=== PATIENT | female | born 1955 | race Caucasian/White ===

== ENCOUNTER → 2016-07-22 | Outpatient (CLI) | payer BC ==
--- NOTE | 2016-07-22 17:15 | MA ---
Screening Digital Mammogram With iCAD Analysis Clinical Indications: Routine screening. A half sister was diagnosed with breast cancer in her 70s. Technique: Standard cephalocaudal projections are obtained. Digital breast tomosynthesis was performe d in the MLO projection with reconstruction at 1.0 mm slice thickness and composite MLO views reconst ructed. This examination is processed by the iCAD computer aided detection system. Comparison: May 2015, May 2014, May 2013, April 2012, January 2011, January 2010, Jan us2008. Breast density: Type C: Heterogeneously dense. Findings: CAD was reviewed. No masses, suspicious calcifications or secondary signs of malignancy are seen. There has been no significant change in the appearance of either breast. Impression: Negative mammogram. BI-RADS 1. Recommendation: Routine mammographic screening in one year as long as physical examination is negativ e in this patient with heterogeneously dense breast parenchyma. [facility] will send a result letter to the patient. Negative mammography should not preclude additional workup of a clinically suspicious finding. The patient's information is entered into a reminder system with a target due date for her next mammo gram.
== END ==
LOC: FIMAGING 15:39
DX: Z12.31 Encounter for screening mammogram for malignant neoplasm of breast (principal); Z80.3 Family history of malignant neoplasm of breast
CPT/HCPCS: G0202

== ENCOUNTER → 2016-08-08 | Outpatient (CLI) | payer BC | LOC: BMCIMAGING 08:10 | PROVIDERS: ATTEND Orthopaedic Surgery | DX: M17.0 Bilateral primary osteoarthritis of knee (principal) ==

== ENCOUNTER → 2016-09-12 | Outpatient (CLI) | payer BC | LOC: FIMAGING 09:25 | PROVIDERS: ATTEND Orthopaedic Surgery | DX: M16.11 Unilateral primary osteoarthritis, right hip (principal); M16.12 Unilateral primary osteoarthritis, left hip ==

== ENCOUNTER 2016-10-14 08:20 | Inpatient (IN) | payer BC ==
[2016-10-10 10:49] LABS: BCH VENIPUNCTURE CHGD
[2016-10-10 12:53] LABS: % IMMATURE GRANULYOCYTES 0.1 % (0.0-1.1); ABSOLUTE IMMATURE GRANULOCYTES 0.01 10^3/uL (0.00-0.10); ADD DIFF? NO; ADD MORPH? NO; ADD SCAN? NO; ATYPICAL LYMPHOCYTE FLAG 30 (0-99); FRAGMENT RBC FLAG 0 (0-99); HEMATOCRIT 40.4 % (38.0-47.0); HEMOGLOBIN 13.3 g/dL (12.6-16.3); LEFT SHIFT FLG 0 (0-99); LIPEMIA HEMOLYSIS FLAG 80 (0-99); MEAN CELL HEMOGLOBIN 31.4 pg (27.9-34.1); MEAN CELL HEMOGLOBIN CONCENTR. 32.9 g/dL (32.4-36.7); MEAN CELL VOLUME 95.3 fL (81.5-99.8); MEAN PLATELET VOLUME 9.3 fL (8.7-11.7); PLATELET CLUMPS FLAG 0 (0-99); PLATELET COUNT 195 10^3/uL (150-400); RED BLOOD CELL COUNT 4.24 10^6/uL (4.18-5.33); RED CELL DISTRIBUTION WIDTH 13.2 % (11.5-15.2)
--- NOTE | 2016-10-14 07:04 | PDIAF ---
- Diagnosis Diagnosis: right hip djd Code Status: Full Code - Medication Management Discharge Medications: Medications to Continue on Transfer Calcium Carbonate [Oyster Shell Calcium 500 mg (*)] 500 mg PO DAILY 09/11/16 [ Last Taken Unknown] Cholecalciferol Vit D3 [Vitamin D3 (*)] 1,000 units PO DAILY 09/11/16 [Last Taken Unknown] Diclofenac Sodium [Voltaren 50 MG (*)] 100 mg PO DAILY PRN 09/11/16 [Last Taken Unknown] Multivitamins [Multivitamin (*)] 1 each PO DAILY 09/11/16 [Last Taken Unknown] Naproxen Sodium [Aleve 220 MG (*)] 220 mg PO DAILY PRN 09/11/16 [Last Taken Unknown] Discharge Medications: Refer to the Discharge Home Medication list for PRN reason. - Orders Services needed: Physical Therapy Diet Recommendation: no restrictions on diet Diet Texture: Regular Texture Diet Activity/Weight Bearing Restrictions: wbat. anterior hip precautions. daily dressing changes. may shower without bandage, no soaking or immersion. seek attention for increasing pain, drainage, fevers, sob or other focal complaints. f/u at two weeks - Follow Up Care Current Providers and Referrals: Cathy Nugent MD [Primary Care Provider] -
[~2016-10-14 08:20] MED LIST: BISACODYL 10 MG SUPP PR PRN; CYCLOBENZAPRINE 10 MG TAB PO PRN; DIAZEPAM 5 MG TAB PO PRN; DIPHENOXYLATE/ATROPINE LOMOTIL 1 TAB PO PRN; LACTULOSE 20 GM/30 ML UDCUP PO PRN; MAGNESIUM HYDROXIDE 30 ML UDCUP PO PRN; METOCLOPRAMIDE 10 MG/2 ML VIAL IVP PRN; ONDANSETRON 4 MG/2 ML VIAL IVP PRN; PHARMACY PAIN CONSULT 1 EA MISC PRN; POLYETHYLENE GLYCOL 3350 17 GM PKT PO PRN; PROMETHAZINE HCL 25 MG SUPPR PR PRN; PROPOFOL 200 MG/20 ML VIAL ONE; TEMAZEPAM 15 MG CAP PO PRN; TRANEXAMIC ACID 1,250 MG in NS 100 ML IV ONE; ceFAZolin 1 GM/5 ML SYR ONE; diphenhydrAMINE 25 MG CAP PO PRN; fentaNYL 100 MCG/2 ML INJ ONE; oxyCODONE IR 5 MG TAB PO PRN; traMADol 50 MG TAB PO PRN
[2016-10-14] MEDS ORDERED: ROPI/epiNEPH/KETOROLAC/morphINE JOINT COCKTAIL IU ONE (08:30)
[2016-10-14] MEDS ORDERED: ACETAMINOPHEN 325 MG TAB PO ONE (08:30)
[2016-10-14] MEDS ORDERED: CHLORHEXIDINE GLUC HIBICLENS 118 ML BTL TP ONE (08:30)
[2016-10-14] MEDS ORDERED: CEFAZOLIN 2 GM/DEXTR 100 ML IV ONE (08:30)
[2016-10-14] MEDS ORDERED: FAMOTIDINE 20 MG TAB PO ONE (08:30)
[2016-10-14] MEDS ORDERED: LIDOCAINE 1% 2 ML INJ ONE (08:38)
[2016-10-14] MEDS ORDERED: MIDAZOLAM 2 MG/2 ML VIAL ONE (09:27)
[2016-10-14] MEDS ORDERED: fentaNYL 100 MCG/2 ML INJ ONE ×2 (09:29→11:39)
[2016-10-14] MEDS ORDERED: ROCURONIUM 50 MG/5 ML VIAL ONE (09:29)
[2016-10-14] MEDS ORDERED: DEXAMETHASONE 4 MG/ML VIAL ONE (09:33)
[2016-10-14] MEDS ORDERED: PHENYLEPHRINE HCL 100 MCG/ML SYR ONE (09:43)
[2016-10-14] MEDS ORDERED: morphINE *ANESTHESIA ONLY* 10 MG/ML VIAL ONE (10:07)
[2016-10-14] MEDS ORDERED: ONDANSETRON 4 MG/2 ML VIAL ONE (10:28)
[2016-10-14] MEDS ORDERED: GLYCOPYRROLATE 0.2 MG/1 ML VIAL ONE (10:29)
[2016-10-14] MEDS ORDERED: NEOSTIGMINE METHYLSULFATE 5 MG/5 ML SYR ONE (10:29)
[2016-10-14] MEDS: CALCIUM CARBONATE 500 MG TAB PO SCH (12:58)
[2016-10-14] MEDS: CHOLECALCIFEROL VIT D3 1,000 UNITS TAB PO SCH (12:58)
[2016-10-14] MEDS: SENNOSIDES/DOCUSATE SODIUM TAB PO SCH ×2 (12:59→21:34)
[2016-10-14] MEDS: MULTIVITAMINS 1 EACH TAB PO SCH (12:59)
[2016-10-14] MEDS: LR 1,000 ML IV SCH (13:43)
[2016-10-14] MEDS: ceFAZolin 2 GM/DEXTROSE 100 ML IV SCH ×2 (13:43→21:32)
[2016-10-14] MEDS: ACETAMINOPHEN 325 MG TAB PO SCH ×2 (17:29→18:15)
[2016-10-14] MEDS: ONDANSETRON DISINTEGRATING 4 MG TAB PO PRN (21:25)
[2016-10-14] MEDS: ASPIRIN 325 MG TAB PO SCH (21:32)
[2016-10-14] MEDS: FAMOTIDINE 20 MG TAB PO SCH (21:32)
[2016-10-14] MEDS ORDERED: PROMETHAZINE HCL 25 MG TAB PO PRN (22:33)
[2016-10-15] MEDS: ACETAMINOPHEN 325 MG TAB PO SCH ×3 (04:33→13:05)
[2016-10-15 04:46] LABS: HEMATOCRIT 30.4 % (38.0-47.0)
--- NOTE | 2016-10-15 07:22 | PDIAF ---
- Diagnosis Diagnosis: right hip djd Code Status: Full Code - Medication Management Discharge Medications: Medications to Continue on Transfer Calcium Carbonate [Oyster Shell Calcium 500 mg (*)] 500 mg PO DAILY 09/11/16 [ Last Taken 09/30/16] Cholecalciferol Vit D3 [Vitamin D3 (*)] 1,000 units PO DAILY 09/11/16 [Last Taken 09/30/16] Diclofenac Sodium [Voltaren 50 MG (*)] 100 mg PO DAILY PRN 09/11/16 [Last Taken 09/30/16] Multivitamins [Multivitamin (*)] 1 each PO DAILY 09/11/16 [Last Taken 09/30/16] Naproxen Sodium [Aleve 220 MG (*)] 220 mg PO DAILY PRN 09/11/16 [Last Taken 04/08] Aspirin [Aspirin 325 mg (*)] 325 mg PO DAILY #0 tab 10/15/16 [Last Taken Unknown ] Diazepam [Valium 5 MG (*)] 5 mg PO Q6HRS PRN #30 tab 10/15/16 [Last Taken Unknown] oxyCODONE IR [Oxycodone Ir (*)] 5 - 10 mg PO Q3HRS PRN #70 tab 10/15/16 [Last Taken Unknown] Discharge Medications: Refer to the Discharge Home Medication list for PRN reason. - Orders Services needed: Physical Therapy Diet Recommendation: no restrictions on diet Diet Texture: Regular Texture Diet Activity/Weight Bearing Restrictions: wbat. anterior hip precautions. daily dressing changes. may shower without bandage, no soaking or immersion. seek attention for increasing pain, drainage, fevers, sob or other focal complaints. f/u at two weeks - Follow Up Care Current Providers and Referrals: Cathy Nugent MD [Primary Care Provider] -
[2016-10-15 07:31] VITALS: PULSE 64; RESP 14; TEMP 98.6; O2SAT 98
[2016-10-15] MEDS: LR 1,000 ML IV SCH (08:17)
[2016-10-15] MEDS: MULTIVITAMINS 1 EACH TAB PO SCH (08:21)
[2016-10-15] MEDS: SENNOSIDES/DOCUSATE SODIUM TAB PO SCH (08:21)
[2016-10-15] MEDS: FAMOTIDINE 20 MG TAB PO SCH (08:21)
[2016-10-15] MEDS: CHOLECALCIFEROL VIT D3 1,000 UNITS TAB PO SCH (08:21)
[2016-10-15] MEDS: CALCIUM CARBONATE 500 MG TAB PO SCH (08:21)
[2016-10-15] MEDS: ASPIRIN 325 MG TAB PO SCH (08:21)
--- NOTE | 2016-10-15 08:35 | GDS ---
[f rep st] DISCHARGE SUMMARY ADMIT DIAGNOSIS: Right hip degenerative joint disease. DISCHARGE DIAGNOSIS: Right hip degenerative joint disease. PROCEDURE: Right total hip arthroplasty. HISTORY OF PRESENT ILLNESS: The patient is a 61-year-old woman who has end-stage arthritis to her r ight hip. Clinical and radiographic features are consistent with this. She has failed attempts at conservative management. I have recommended total hip replacement. She understood the risks, benef its, and alternatives, and wished to proceed. Written consent was signed and placed in the patient' s chart. HOSPITAL COURSE: The patient was admitted to the hospital floor after undergoing uncomplicated tota l hip arthroplasty. She tolerated the procedure well. Postoperatively, she had nausea for the firs t 24 hours. At the time of discharge, she is tolerating an oral diet. Her pain is well controlled on oral medicines. She is voiding without difficulty. Her incisions are clean, dry, and intact. S he has no calf swelling or tenderness. Negative Homans. X-rays are stable with concentric reductio n. No fracture or lucency. DISCHARGE ACTIVITY: She is to follow anterior hip precautions, daily dressing changes, no soaking o r immersion. Follow up in 2 weeks. Seek attention for increasing redness, swelling, drainage, disc harge. DISCHARGE MEDICATIONS: Oxycodone, Valium, and aspirin 325 mg p.o. daily for 6 weeks. Copy requested to: Primary Care Physician /[id number]/LUZ ELENAL
[2016-10-15] MEDS: ONDANSETRON DISINTEGRATING 4 MG TAB PO PRN (09:09)
[2016-10-15 12:04] VITALS: BP 110/54
== END 2016-10-15 13:10 | disposition home or self-care (01) | DRG 470 ==
LOC: F3N 08:20
PROVIDERS: ADMIT Orthopaedic Surgery; ATTEND Orthopaedic Surgery
PROC: 0SR904Z Replacement of Right Hip Joint with Ceramic on Polyethylene Synthetic Substitute, Open Approach (ICD-10-PCS; principal; 2016-10-14 09:30)
DX: M16.11 Unilateral primary osteoarthritis, right hip (principal); Z86.14 Personal history of Methicillin resistant Staphylococcus aureus infection
CPT/HCPCS: 97116-GP; 97161-GP; 97165-GO; J0171; J0690; J1100; J1885; J2250; J2370; J2405; J2704; J2710; J2765; J2795; J3010

== ENCOUNTER 2016-12-09 11:06 | Inpatient (IN) | payer BC ==
--- NOTE | 2016-12-09 07:10 | PDHPUP ---
History & Physical Update H&P update statement: This history and physical update is based on an assessment of the patient which was completed after admission or registration (within 24 hours), but prior to the surgery/procedure. H&P update: H&P reviewed & patient examined, no change in patient's condition since H&P completed
[~2016-12-09 11:06] MED LIST changes: +ACETAMINOPHEN 325 MG TAB PO ONE; +CEFAZOLIN 2 GM/DEXTR 100 ML IV ONE; +CHLORHEXIDINE GLUC HIBICLENS 118 ML BTL TP ONE; -CYCLOBENZAPRINE 10 MG TAB PO PRN; +FAMOTIDINE 20 MG TAB PO ONE; +ONDANSETRON DISINTEGRATING 4 MG TAB PO PRN; +PROMETHAZINE HCL 25 MG/ML INJ IVP PRN; -PROPOFOL 200 MG/20 ML VIAL ONE; +ROPI/epiNEPH/KETOROLAC/morphINE JOINT COCKTAIL IU ONE; -TRANEXAMIC ACID 1,250 MG in NS 100 ML IV ONE; -ceFAZolin 1 GM/5 ML SYR ONE; -fentaNYL 100 MCG/2 ML INJ ONE; -traMADol 50 MG TAB PO PRN
[2016-12-09] MEDS ORDERED: LR 1,000 ML IV ONE (11:34)
[2016-12-09] MEDS ORDERED: LIDOCAINE 1% 2 ML INJ ID PRN (11:34)
[2016-12-09] MEDS ORDERED: ACETAMINOPHEN 500 MG TAB ONE (11:39)
[2016-12-09] MEDS ORDERED: FAMOTIDINE 20 MG TAB ONE (11:40)
[2016-12-09] MEDS ORDERED: LIDOCAINE 1% 5 ML SDV ONE (11:40)
[2016-12-09] MEDS ORDERED: CEFAZOLIN 2 GM/DEXTROSE/100 ML BAG IV ONE (11:40)
[2016-12-09] MEDS ORDERED: THROMBIN (BOVINE) 5,000 UNIT VIAL TP ONE (13:54)
[2016-12-09] MEDS ORDERED: CALCIUM CHLORIDE 1 GM/10 ML INJ ONE (13:54)
[2016-12-09] MEDS ORDERED: POLYMYXIN B SULFATE 500,000 UNIT/10 ML SYR IRR ONE (13:55)
[2016-12-09] MEDS ORDERED: BACITRACIN 50,000 UNITS/10 ML SYR IRR ONE (13:55)
[2016-12-09] MEDS ORDERED: MIDAZOLAM 2 MG/2 ML VIAL IVP ONE (14:05)
--- NOTE | 2016-12-09 14:05 | PDANEPAE ---
ANE Past Medical History - Cardiovascular History Hx Hypertension: No Hx Arrhythmias: No Hx Chest Pain: No Hx Coronary Artery / Peripheral Vascular Disease: No Hx CHF / Valvular Disease: No Hx Palpitations: No - Pulmonary History Hx COPD: No Hx Asthma/Reactive Airway Disease: No Hx Recent Upper Respiratory Infection: No Hx Oxygen in Use at Home: No - Neurologic History Hx Cerebrovascular Accident: No Hx Seizures: No Hx Dementia: No - Endocrine History Hx Diabetes: No - Renal History Hx Renal Disorders: Yes - Liver History Hx Hepatic Disorders: No - Neurological & Psychiatric Hx Hx Neurological and Psychiatric Disorders: No - Cancer History Hx Cancer: No - Congenital Disorder History Hx Congenital Disorders: No - GI History Hx Gastrointestinal Disorders: No - Chronic Pain History Chronic Pain: Yes (RT HIP) ANE Review of Systems - Exercise capacity METS (RN): 4 METS ANE Patient History - Allergies Allergies/Adverse Reactions: No Known Allergies Allergy (Verified 12/09/16 11:57) - Home Medications Home Medications: Calcium Carbonate [Oyster Shell Calcium 500 mg (*)] 500 mg PO DAILY 09/11/16 [ Last Taken 12/02/16] Cholecalciferol Vit D3 [Vitamin D3 (*)] 1,000 units PO DAILY 09/11/16 [Last Taken 12/02/16] Diclofenac Sodium [Voltaren 50 MG (*)] 100 mg PO DAILY PRN 09/11/16 [Last Taken 12/02/16] Multivitamins [Multivitamin (*)] 1 each PO DAILY 09/11/16 [Last Taken 12/02/16] Naproxen Sodium [Aleve 220 MG (*)] 220 mg PO HS PRN 09/11/16 [Last Taken ] - NPO status NPO Since - Liquids (Date): 12/09/16 NPO Since - Liquids (Time): 07:00 NPO Since - Solids (Date): 12/08/16 - Smoking Hx Smoking Status: Never smoked ANE Labs/Vital Signs - Vital Signs Blood Pressure: 124/87 Heart Rate: 70 Respiratory Rate: 14 O2 Sat (%): 95 Height: 172.72 cm Weight: 3628.739 g
[2016-12-09] MEDS ORDERED: LIDOCAINE 2% 5 ML SDV ONE (14:17)
[2016-12-09] MEDS ORDERED: PROPOFOL/EMULSION 500 MG/50 ML BOTTLE IV ONE ×2 (14:17→16:30)
[2016-12-09] MEDS ORDERED: NS IV ONE (15:15)
[2016-12-09] MEDS ORDERED: TRANEXAMIC ACID IV ONE (15:15)
[2016-12-09] MEDS ORDERED: ONDANSETRON 4 MG/2 ML VIAL ONE (16:30)
[2016-12-09] MEDS ORDERED: PHENYLEPHRINE HCL 100 MCG/ML SYR ONE (16:47)
--- NOTE | 2016-12-09 18:26 | POSTANESTH ---
Post Anesthetic Evaluation Cardiovascular Status: Normal, Stable Respiratory Status: Normal, Stable Level of Consciousness/Mental Status: Can Participate in Eval Pain Control: Adequate, Prn Tx Ordered Nausea/Vomiting Control: Adequate, Prn Tx Ordered Complications Possibly Related to Anesthesia: None Noted
[2016-12-09] MEDS ORDERED: fentaNYL 100 MCG/2 ML INJ ONE (18:40)
[2016-12-09] MEDS ORDERED: HYDROmorphONE/DILAUDID 1 MG/ML SYR ONE (18:40)
[2016-12-09] MEDS ORDERED: fentaNYL 100 MCG/2 ML INJ IVP PRN (18:45)
[2016-12-09] MEDS: HYDROmorphONE/DILAUDID 1 MG/ML SYR IVP PRN ×2 (18:49→18:59)
[2016-12-09] MEDS: ACETAMINOPHEN 325 MG TAB PO SCH ×3 (19:42→23:01)
[2016-12-09] MEDS: SENNOSIDES/DOCUSATE SODIUM TAB PO SCH ×2 (19:44→20:33)
[2016-12-09] MEDS: FAMOTIDINE 20 MG TAB PO SCH (20:33)
[2016-12-09] MEDS: ASPIRIN 325 MG TAB PO SCH (20:34)
[2016-12-09] MEDS: LR 1,000 ML IV SCH (23:22)
[2016-12-10] MEDS: ACETAMINOPHEN 325 MG TAB PO SCH ×2 (05:01→12:27)
[2016-12-10 05:08] LABS: HEMATOCRIT 30.9 % (38.0-47.0); HEMOGLOBIN 10.1 g/dL (12.6-16.3)
--- NOTE | 2016-12-10 07:05 | PDIAF ---
- Diagnosis Diagnosis: right hip djd Code Status: Full Code - Medication Management Discharge Medications: Medications to Continue on Transfer Calcium Carbonate [Oyster Shell Calcium 500 mg (*)] 500 mg PO DAILY 09/11/16 [ Last Taken 12/02/16] Cholecalciferol Vit D3 [Vitamin D3 (*)] 1,000 units PO DAILY 09/11/16 [Last Taken 12/02/16] Diclofenac Sodium [Voltaren 50 MG (*)] 100 mg PO DAILY PRN 09/11/16 [Last Taken 12/02/16] Multivitamins [Multivitamin (*)] 1 each PO DAILY 09/11/16 [Last Taken 12/02/16] Naproxen Sodium [Aleve 220 MG (*)] 220 mg PO HS PRN 09/11/16 [Last Taken ] Aspirin [Aspirin 325 mg (*)] 325 mg PO DAILY #0 tab 12/10/16 [Last Taken Unknown ] Diazepam [Valium 5 MG (*)] 5 mg PO Q6HRS PRN #30 tab 12/10/16 [Last Taken Unknown] oxyCODONE IR [Oxycodone Ir (*)] 5 - 10 mg PO Q3HRS PRN #80 tab 12/10/16 [Last Taken Unknown] Discharge Medications: Refer to the Discharge Home Medication list for PRN reason. - Orders Services needed: Physical Therapy Diet Recommendation: no restrictions on diet Diet Texture: Regular Texture Diet Activity/Weight Bearing Restrictions: wbat. anterior hip precautions. daily dressing changes. no soaking or immersion. may shower without bandage. aspirin 325 mg po daily. f/u at two weeks - Follow Up Care Current Providers and Referrals: Cathy Nugent MD [Primary Care Provider] -
[2016-12-10] MEDS: ASPIRIN 325 MG TAB PO SCH (08:44)
[2016-12-10] MEDS: SENNOSIDES/DOCUSATE SODIUM TAB PO SCH (08:44)
[2016-12-10] MEDS: FAMOTIDINE 20 MG TAB PO SCH (08:58)
[2016-12-10] MEDS: LR 1,000 ML IV SCH (08:59)
--- NOTE | 2016-12-10 12:06 | GDS ---
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 POSTOPERATIVE DIAGNOSIS: Right failed total hip arthroplasty. PROCEDURE: Revision femoral component, right total hip arthroplasty. OPERATIVE INDICATIONS: The patient is a 61-year-old woman who is 6 weeks out from a right anterior total hip replacement. She has developed subsidence of her stem of approximately 1 cm. This has le ad to functional compromise and leg length inequality. I have recommended revision of her femoral c omponent. She understood the risks, benefits, alternatives and wished to proceed. Written consent was signed and placed in the patient's chart. HOSPITAL COURSE: The patient was admitted to the hospital floor after uncomplicated revision of her total hip arthroplasty. Intraoperatively, she did sustain a fracture of the greater trochanter. T his was cerclaged during fixation of the new femoral component. I have placed her on 25% weightbear ing precautions. At the time of discharge, she is tolerating an oral diet. Her pain is well contro lled on oral medicines. She is voiding without difficulty. Dressings are clean, dry, and intact. She has no calf swelling or tenderness. X-rays are stable, anatomically aligned. DISCHARGE ACTIVITY: She is 25% weight bearing. Anterior hip precautions. May shower without the b andage. No soaking or immersion. Fall precautions. Follow up in 2 weeks. Seek attention for incr easing redness, swelling, drainage, discharge, shortness of breath, calf pain. DISCHARGE MEDICATIONS: Valium and oxycodone. FOLLOWUP: In 2 weeks. /[id number]/MODL
[2016-12-10 15:52] VITALS: BP 98/55; PULSE 76; RESP 16; TEMP 97.9; O2SAT 96
[2016-12-10] MEDS ORDERED: ceFAZolin 2 GM/DEXTROSE 100 ML IV SCH (22:00)
== END 2016-12-10 17:39 | disposition home health service (06) | DRG 468 ==
LOC: F3N 11:06
PROVIDERS: ADMIT Orthopaedic Surgery; ATTEND Orthopaedic Surgery
PROC: 0SPR0JZ Removal of Synthetic Substitute from Right Hip Joint, Femoral Surface, Open Approach (ICD-10-PCS; principal; 2016-12-09 12:45)
PROC: 0SRR03Z Replacement of Right Hip Joint, Femoral Surface with Ceramic Synthetic Substitute, Open Approach (ICD-10-PCS; principal; 2016-12-09 12:45)
DX: T84.090A Other mechanical complication of internal right hip prosthesis, initial encounter (principal); Z79.82 Long term (current) use of aspirin; G89.29 Other chronic pain
CPT/HCPCS: 97161-GP; C1713; J0171; J0690; J1170; J1885; J2250; J2370; J2405; J2704; J2795; J3010

== ENCOUNTER → 2016-12-20 | Outpatient (CLI) | payer BC | LOC: BMCIMAGING 08:37 | PROVIDERS: ATTEND Physician Assistant | DX: Z47.1 Aftercare following joint replacement surgery (principal); Z96.641 Presence of right artificial hip joint ==

== ENCOUNTER → 2017-01-02 | Outpatient (CLI) | payer BC | LOC: BMCIMAGING 08:54 | PROVIDERS: ATTEND Orthopaedic Surgery | DX: Z96.641 Presence of right artificial hip joint (principal); Z98.890 Other specified postprocedural states ==

== ENCOUNTER → 2017-01-13 | Outpatient (CLI) | payer BC | LOC: BMCIMAGING 10:03 | PROVIDERS: ATTEND Orthopaedic Surgery | DX: Z47.1 Aftercare following joint replacement surgery (principal); Z96.641 Presence of right artificial hip joint ==

== ENCOUNTER → 2017-02-12 | Outpatient (CLI) | payer BC | LOC: BMCIMAGING 09:49 | PROVIDERS: ATTEND Orthopaedic Surgery | DX: Z47.1 Aftercare following joint replacement surgery (principal); Z96.641 Presence of right artificial hip joint ==

== ENCOUNTER → 2017-03-12 | Outpatient (CLI) | payer BC | LOC: BMCIMAGING 15:46 | PROVIDERS: ATTEND Orthopaedic Surgery | DX: Z47.1 Aftercare following joint replacement surgery (principal); Z96.641 Presence of right artificial hip joint; S42.251D Displaced fracture of greater tuberosity of right humerus, subsequent encounter for fracture with routine healing; R93.5 Abnormal findings on diagnostic imaging of other abdominal regions, including retroperitoneum ==

== ENCOUNTER → 2017-05-06 | Outpatient (CLI) | payer BC | LOC: BMCIMAGING 13:22 | PROVIDERS: ATTEND Orthopaedic Surgery | DX: Z47.1 Aftercare following joint replacement surgery (principal); Z96.641 Presence of right artificial hip joint ==

== ENCOUNTER → 2017-06-30 | Outpatient (CLI) | payer BC | LOC: FIMAGING 09:18 | PROVIDERS: ATTEND Family Medicine | DX: Z13.820 Encounter for screening for osteoporosis (principal); M85.80 Other specified disorders of bone density and structure, unspecified site; Z78.0 Asymptomatic menopausal state; Z87.81 Personal history of (healed) traumatic fracture ==

== ENCOUNTER → 2017-07-24 | Outpatient (CLI) | payer BC | LOC: FIMAGING 10:15 | PROVIDERS: ATTEND Family Medicine | DX: Z12.31 Encounter for screening mammogram for malignant neoplasm of breast (principal) ==

== ENCOUNTER → 2017-12-31 | Outpatient (CLI) | payer BC | LOC: BMCIMAGING 07:43 | PROVIDERS: ATTEND Orthopaedic Surgery | DX: Z09 Encounter for follow-up examination after completed treatment for conditions other than malignant neoplasm (principal); Z96.641 Presence of right artificial hip joint ==

== ENCOUNTER → 2018-05-28 | Outpatient (CLI) | payer BC | LOC: CIMAGING 13:20 | PROVIDERS: ATTEND Family Medicine | DX: N63.20 Unspecified lump in the left breast, unspecified quadrant (principal) ==

== ENCOUNTER → 2018-07-28 | Outpatient (CLI) | payer OTHER, MEDICARE | LOC: CIMAGING 08:52 | PROVIDERS: ATTEND Family Medicine | DX: Z12.31 Encounter for screening mammogram for malignant neoplasm of breast (principal); Z80.3 Family history of malignant neoplasm of breast ==